=== PATIENT | female | born 1960 | race African-American/Black ===

== ENCOUNTER 2019-06-22 07:52 | Day surgery (SDC) | payer OTHER ==
[2019-06-19 15:18] VITALS: BMI 46.6
[2019-06-22 09:42] VITALS: TEMP 98.3
[2019-06-22 10:27] VITALS: BP 120/84; PULSE 72
--- NOTE | 2019-06-23 17:04 | PATH ---
Surgical Pathology Report Patient Name: RUFUS GUERRERO [facility]. Rec. #: [id number] /Age/Gender: 1960 (Age: 58) / F Account: [id number] Location: U-ENDOSCOPY Taken: 06/22/2019 Received: 06/22/2019 Reported: 06/23/2019 Physicians: Joanna Chavarria M.D. Specimen(s) Received A: DUODENUM, SECOND PORTION AND BULB B: ANTRUM C: RECTUM POLYP D: POLYPS DISTAL TRANSVERSE E: POLYPS PROXIMAL TRANSVERSE Clinical History Colon cancer screening pre-bariatric Postoperative diagnosis: Duodenitis, gastritis, colon polyps Final Diagnosis A. DUODENUM, SECOND PORTION AND BULB, BIOPSY: DUODENAL MUCOSA WITH MILD CHRONIC DUODENITIS. B. STOMACH, ANTRUM, BIOPSY: GASTRIC ANTRAL MUCOSA WITH MILD CHRONIC GASTRITIS. IMMUNOHISTOCHEMICAL STAIN FOR H. PYLORI IS NEGATIVE. C. RECTUM, POLYP, BIOPSY: POLYPOID COLONIC MUCOSA WITH PROMINENT LYMPHOID AGGREGATE AND FOCAL SUPERFICIAL HYPERPLASTIC FEATURES. D. DISTAL TRANSVERSE COLON, POLYPS, BIOPSY: HYPERPLASTIC POLYP(S). E. PROXIMAL TRANSVERSE COLON, POLYPS, BIOPSY: TUBULAR ADENOMA(S). Electronically Signed Nathalia Wang M.D. Gross Description A. Received in formalin, labeled "biopsy duodenum second portion and bulb" are 5 newberry, irregular portions of soft tissue ranging from 0.1-0.4 cm. in greatest dimension. The specimens are submitted in toto in one cassette. B. Received in formalin, labeled "biopsy antrum" are 4 newberry, irregular portions of soft tissue ranging from 0.3-0.7 cm. in greatest dimension. The specimens are submitted in toto in one cassette. C. Received in formalin, labeled "polyp rectum" are 2 newberry, irregular portions of soft tissue measuring 0.2 and 0.5 cm. in greatest dimension. The specimens are submitted in toto in one cassette. D. Received in formalin, labeled "polyps distal transverse" are 3 newberry, irregular portions of soft tissue averaging 0.2 cm. in greatest dimension. The specimens are submitted in toto in one cassette. E. Received in formalin, labeled "polyps proximal transverse" are 5 newberry, irregular portions of soft tissue ranging from 0.2-1.2 cm. in greatest dimension. The specimens are submitted in toto in one cassette. DL/06/22/2019 saudi/06/22/2019
== END 2019-06-22 10:36 | disposition home or self-care (01) ==
LOC: JASU-ENDO 07:52
PROVIDERS: ATTEND Internal Medicine Gastroenterology
PROC: 0DBL8ZX Excision of Transverse Colon, Via Natural or Artificial Opening Endoscopic, Diagnostic (ICD-10-PCS; 2019-06-22)
PROC: 0DB98ZX Excision of Duodenum, Via Natural or Artificial Opening Endoscopic, Diagnostic (ICD-10-PCS; 2019-06-22)
PROC: 0DB68ZX Excision of Stomach, Via Natural or Artificial Opening Endoscopic, Diagnostic (ICD-10-PCS; 2019-06-22)
PROC: 0DBP8ZX Excision of Rectum, Via Natural or Artificial Opening Endoscopic, Diagnostic (ICD-10-PCS; principal; 2019-06-22 08:45)
DX: Z12.11 Encounter for screening for malignant neoplasm of colon (principal); K62.1 Rectal polyp; D12.3 Benign neoplasm of transverse colon; K64.8 Other hemorrhoids; K25.9 Gastric ulcer, unspecified as acute or chronic, without hemorrhage or perforation; K29.80 Duodenitis without bleeding; Z01.818 Encounter for other preprocedural examination; E66.01 Morbid (severe) obesity due to excess calories; G47.30 Sleep apnea, unspecified
CPT/HCPCS: 88305-TC; 88342-TC

== ENCOUNTER 2022-01-24 04:21 | Day surgery (SDC) | payer OTHER ==
[2022-01-24] MEDS ORDERED: ROPIVACAINE HCL 0.5% 30ML VIAL ONE (07:17)
[2022-01-24 07:31] VITALS: BMI 37.9
[2022-01-24] MEDS ORDERED: oxyCODONE HCL 5 MG TABLET PO PRN ×2 (08:02)
[2022-01-24] MEDS ORDERED: PROMETHAZINE HCL 25 MG/1 ML VIAL IVPUSH PRN (08:02)
[2022-01-24] MEDS ORDERED: ONDANSETRON 4 MG/2 ML VIAL IVPUSH PRN (08:02)
[2022-01-24] MEDS ORDERED: LACTATED RINGERS SOLUTION 1,000 ML IV SCH (08:15)
[2022-01-24] MEDS ORDERED: DEXAMETHASONE SOD PHOSPHATE 10 MG/1 ML VIAL ONE (08:20)
[2022-01-24] MEDS ORDERED: MIDAZOLAM HCL 2 MG/2 ML SINGLE DOSE VIAL ONE ×2 (08:22)
[2022-01-24] MEDS ORDERED: PROPOFOL 20 ML ONE ×3 (08:30→10:07)
[2022-01-24] MEDS ORDERED: ceFAZolin SODIUM 1 GM VIAL IVPB ONE (09:05)
[2022-01-24] MEDS ORDERED: ceFAZolin SODIUM 1 GM VIAL ONE (09:09)
[2022-01-24] MEDS ORDERED: KETOROLAC TROMETHAMINE 30 MG/1 ML VIAL ONE (09:57)
[2022-01-24 12:41] VITALS: BP 128/69; PULSE 71; TEMP 96.2
== END 2022-01-24 13:35 | disposition home or self-care (01) ==
LOC: JASU-SURG 04:21
PROVIDERS: ATTEND Orthopaedic Surgery
PROC: 0LS34ZZ Reposition Right Upper Arm Tendon, Percutaneous Endoscopic Approach (ICD-10-PCS; 2022-01-24)
PROC: 0RNJ4ZZ Release Right Shoulder Joint, Percutaneous Endoscopic Approach (ICD-10-PCS; principal; 2022-01-24 08:45)
PROC: 0LM14ZZ Reattachment of Right Shoulder Tendon, Percutaneous Endoscopic Approach (ICD-10-PCS; 2022-01-24 08:45)
DX: M75.101 Unspecified rotator cuff tear or rupture of right shoulder, not specified as traumatic (principal); S46.211A Strain of muscle, fascia and tendon of other parts of biceps, right arm, initial encounter; X58.XXXA Exposure to other specified factors, initial encounter; Y93.9 Activity, unspecified; Y92.9 Unspecified place or not applicable; Y99.9 Unspecified external cause status
CPT/HCPCS: 29826; 29827; 29828; C1713; 94760; J1100